=== PATIENT | male | born 1960 | race Caucasian/White ===

== ENCOUNTER 2018-01-23 18:37 | Emergency (ER) | payer OTHER ==
[2018-01-23] MEDS ORDERED: ONDANSETRON DISINTEGRATING 4 MG TAB ONE (18:59)
[2018-01-23] MEDS ORDERED: ONDANSETRON DISINTEGRATING 4 MG TAB PO ONE (19:01)
[2018-01-23] MEDS ORDERED: DEXAMETHASONE 10 MG/ML VIAL IVP ONE (19:14)
[2018-01-23] MEDS ORDERED: KETOROLAC 30 MG/1 ML SDV IVP ONE (19:14)
[2018-01-23] MEDS ORDERED: LORazepam 2 MG/ML INJ IVP ONE (19:14)
[2018-01-23] MEDS ORDERED: NS 1,000 ML IV ONE (19:14)
[2018-01-23] MEDS ORDERED: METOCLOPRAMIDE 10 MG/2 ML VIAL IVP ONE (19:14)
[2018-01-23] MEDS ORDERED: KETOROLAC 15 MG/1 ML SDV ONE (19:44)
[2018-01-23] MEDS ORDERED: ONDANSETRON 4 MG/2 ML VIAL ONE (19:44)
--- NOTE | 2018-01-23 20:46 | EDPHY ---
H & P Stated Complaint: headache/nausea since this am, remote hx of migraines Time Seen by Provider: 01/23/18 19:04 HPI/ROS: Chief complaint: Headache History of present illness: This is a 57-year-old male who presents to the emergency department for evaluation of a headache. Patient reports the onset of symptoms this morning. Symptoms began slowly and have been worsening throughout the day. Pain is primarily in the back of his head. He has associated photo and phonophobia. Nausea and vomiting. He has a history of migraine headaches, his last 1 was 6 months ago, he used to get the more frequently and used Imitrex, this feels similar to previous episodes. Headache was not thunderclap in nature. It is not the worst headache he has ever had. It is not different from previous headaches. He denies associated signs or symptoms including no fever or cold symptoms, no paresthesias, weakness or paralysis or bowel or bladder dysfunction, no history of recent trauma. Review of systems: A 10 point review of systems was obtained and other than described above was negative - Medical/Surgical History Hx Asthma: No Hx Chronic Respiratory Disease: No Hx Diabetes: No Hx Cardiac Disease: No Hx Renal Disease: No Hx Cirrhosis: No Hx Alcoholism: No Hx HIV/AIDS: No Hx Splenectomy or Spleen Trauma: No Other PMH: migraines. gout - Social History Smoking Status: Never smoked - Physical Exam Exam: General Appearance: Alert, no distress. Eyes: Pupils equal and round no pallor or injection. ENT, Mouth: Mucous membranes moist. Respiratory: There are no retractions, lungs are clear to auscultation. Cardiovascular: Regular rate and rhythm. Gastrointestinal: Abdomen is soft and non tender, no masses, bowel sounds normal. Neurological: Alert and oriented x4. Cranial nerves 2-12 grossly intact. Strength and sensation intact and symmetrical. No pronator drift. Ambulating without difficulty. No meningismus. Skin: Warm and dry, no rashes. Musculoskeletal: Neck is supple non tender. Extremities are symmetrical, full range of motion. Psychiatric: Patient is oriented X 3, there is no agitation. Constitutional: Initial Vital Signs Temperature (C) 36.7 C 01/23/18 18:48 Heart Rate 72 01/23/18 18:48 Respiratory Rate 16 01/23/18 18:48 Blood Pressure 195/112 H 01/23/18 18:48 O2 Sat (%) 95 01/23/18 18:48 O2 Delivery Mode Room Air Allergies/Adverse Reactions: No Known Allergies Allergy (Unverified 01/23/18 18:46) Home Medications: Medication Instructions Recorded Allopurinol 01/23/18 Bupropion HCl 01/23/18 Prozac 20 MG (*) 01/23/18 Simvastatin 01/23/18 Medical Decision Making ED Course/Re-evaluation: Patient is discussed with my secondary supervising physician Dr. Mariano Otero. Patient presents to the emergency department for a headache. Patient is nontoxic. Afebrile and vital signs are stable. He has a nonfocal neurologic exam. He has a history of migraine headaches, this is similar to past headaches. No red flag risk factors were noted, it was not sudden in onset , it is not the worst headache of his life. We discussed the CT scan, he is comfortable not pursuing 1. He is symptomatically treated and reports significant improvement in pain. He would like to be discharged home. Home care is discussed. He is asked to follow up with his primary care doctor this week for recheck. Return precautions are given. Differential Diagnosis: Included but not limited to migraine headache, tension headache, cluster headache, unlikely intracranial bleed or mass - Data Points Medications Given: Discontinued Medications Dexamethasone (Decadron Injection) 10 mg IVP EDNOW ONE Stop: 01/23/18 19:15 Last Admin: 01/23/18 19:56 Dose: 10 mg Diphenhydramine HCl (Benadryl Injection) 25 mg IVP EDNOW ONE Stop: 01/23/18 19:15 Last Admin: 01/23/18 19:55 Dose: 25 mg Sodium Chloride (Ns) 1,000 mls @ 0 mls/hr IV ONCE ONE; Wide Open PRN Reason: Protocol Stop: 01/23/18 19:15 Last Admin: 01/23/18 19:54 Dose: 1,000 mls Ketorolac Tromethamine (Toradol) 15 mg IVP EDNOW ONE Stop: 01/23/18 19:15 Last Admin: 01/23/18 19:55 Dose: 15 mg Lorazepam (Ativan Injection) 1 mg IVP EDNOW ONE Stop: 01/23/18 19:15 Last Admin: 01/23/18 19:56 Dose: 1 mg Metoclopramide HCl (Reglan Injection) 10 mg IVP EDNOW ONE Stop: 01/23/18 19:15 Last Admin: 01/23/18 19:55 Dose: 10 mg Ondansetron HCl (Zofran Odt) 4 mg PO EDNOW ONE Stop: 01/23/18 19:02 Last Admin: 01/23/18 19:05 Dose: 4 mg Departure - Departure Disposition: Home, Routine, Self-Care Clinical Impression: Headache Qualifiers: Headache type: unspecified Headache chronicity pattern: acute headache Intractability: not intractable Qualified Code(s): R51 - Headache Condition: Good Instructions: Acute Headache (ED) Additional Instructions: Please follow-up with your primary care doctor tomorrow for recheck Use [id number] Aleve or ibuprofen for the next 1-2 days as needed for discomfort If symptoms worsen or new symptoms develop return to the emergency room for recheck Referrals: Deni Payne MD [Primary Care Provider] - As per Instructions
[2018-01-23 21:11] VITALS: BP 167/92
== END 2018-01-23 21:09 | disposition home or self-care (01) ==
DX: R51 Headache (principal); E86.9 Volume depletion, unspecified
CPT/HCPCS: 96374; J1100; J1200; J1885; J2060; J2405; J2765